=== PATIENT | male | born 1980 | race Caucasian/White ===

== ENCOUNTER 2021-10-11 20:45 | Emergency (ER) | payer SELFPAY ==
[2021-10-11] MEDS ORDERED: NA CHLORIDE 0.9% 1,000 ML ONE (21:18)
--- NOTE | 2021-10-11 21:54 | RAD REPORT ---
EXAM DESCRIPTION: CT - Head C Spine Mpr Wo Con - 10/11/2021 9:25 pm CLINICAL HISTORY: Head and neck injury status post fall. Head and neck pain COMPARISON: None. TECHNIQUE: Computed axial tomography of the head and cervical spine was obtained. Sagittal and coronal reconstruction was performed. All CT scans are performed using dose optimization technique as appropriate and may include automated exposure control or mA/KV adjustment according to patient size. FINDINGS: An intracranial bleed is not seen. The ventricles are normal in caliber. An extra-axial fl uid collection is not noted.Fluid within the visualized sinuses and mastoids is not seen A cervical fracture is not visualized. No dislocation is noted. IMPRESSION: No acute intracranial abnormality is seen. A cervical fracture is not visualized. If the patient continues to have symptoms to suggest intracra nial /spinal cord pathology then MRI would be recommended
[2021-10-11 22:05] LABS: Hematocrit 45.4 % (39.6-49.0); Lymphocytes % 36.2 % (15.3-44.8); MCV 83.1 fL (80-100); MPV 7.3 fL (7.6-11.3); RBC Red Blood Cell Count 5.47 M/uL (4.33-5.43)
[2021-10-11 22:19] LABS: Potassium 3.6 mmol/L (3.5-5.1)
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
[2021-10-12 02:57] VITALS: TEMP 99.6
[2021-10-12 03:05] VITALS: BP 102/60; O2SAT 95
== END 2021-10-11 23:50 | disposition home or self-care (01) ==
LOC: ER 20:45
DX: S00.83XA Contusion of other part of head, initial encounter (principal)
CPT/HCPCS: 36415; 70450; 72125; 80048; 85025; 96360; 96361; 99284; J7030